=== PATIENT | female | born 1990 ===

== ENCOUNTER 2022-08-04 15:20 | Observation (INO) | payer BC ==
[2022-08-04] MEDS ORDERED: Sodium Chloride 0.9% 20 ML SDV IV PRN (16:26)
[2022-08-04] MEDS ORDERED: Citric Acid/Sodium Citrate Solution 30 ML Cup PO ONE (16:26)
[2022-08-04] MEDS: Lactated Ringers 1,000 ML IV SCH ×2 (16:58→19:33)
[2022-08-04] MEDS: Ondansetron 4 MG/2 ML SDV IVPUSH ONE (17:21)
[2022-08-04] MEDS ORDERED: Sodium Chloride 0.9% 2.5 ML Syringe FLUSH PRN (18:00)
[2022-08-04] MEDS ORDERED: Sodium Chloride 0.9% 10 ML Syringe FLUSH PRN (18:00)
[2022-08-04 18:17] LABS: CARBON DIOXIDE,CO2 17.7 mmol/L (21.0-32.0); POTASSIUM,K 3.8 mmol/L (3.5-5.1)
[2022-08-04] MEDS ORDERED: Lactated Ringers 1,000 ML IV ONE (18:30)
[2022-08-04] MEDS ORDERED: Terbutaline 1 MG/ML SDV SUBCUT ONE (21:06)
[2022-08-05] MEDS: Lactated Ringers 1,000 ML IV SCH (01:56)
[2022-08-05] MEDS ORDERED: Ondansetron 4 MG/2 ML SDV IVPUSH ONE (10:06)
[2022-08-05] MEDS: Ondansetron 4 MG/2 ML SDV IVPUSH ONE (10:23)
== END 2022-08-05 10:50 | disposition home or self-care (01) ==
LOC: MW.OBCHECK 15:20 → MW.OB 15:22 → MW.OBCHECK 19:29 → MW.OB 19:30
PROVIDERS: ADMIT Obstetrics & Gynecology; ATTEND Obstetrics & Gynecology
DX: O36.8130 Decreased fetal movements, third trimester, not applicable or unspecified (principal); O21.2 Late vomiting of pregnancy; O47.03 False labor before 37 completed weeks of gestation, third trimester; Z3A.34 34 weeks gestation of pregnancy; Z20.822 Contact with and (suspected) exposure to COVID-19
CPT/HCPCS: 36415; 59025; 80053; 81001; 81003; 85027; 87635; A9270; J2405; J3105; J7120; U0002

== ENCOUNTER 2022-08-28 00:14 | Inpatient (IN) | payer BC ==
[2022-08-28] MEDS: Sodium Chloride 0.9% 1,000 ML IV SCH ×3 (00:24→17:09)
[2022-08-28] MEDS ORDERED: Terbutaline 1 MG/ML SDV SUBCUT PRN (00:28)
[2022-08-28] MEDS ORDERED: Oxytocin/0.9 % Sodium Chloride 30 UNIT/500 ML BAG IV SCH ×2 (00:30→12:00)
[2022-08-28] MEDS ORDERED: Water For Irrigation,Sterile 1,000 ML Container IRR PRN (00:31)
[2022-08-28] MEDS ORDERED: Sodium Chloride 0.9% 20 ML SDV IV PRN (00:31)
[2022-08-28] MEDS ORDERED: Tranexamic Acid 1,000 MG in Sodium Chloride 0.9% 100 ML IV PRN (00:31)
[2022-08-28] MEDS ORDERED: Misoprostol 200 MCG Tab PO PRN (00:31)
[2022-08-28] MEDS ORDERED: Carboprost Tromethamine 250 MCG/1 ML Amp IM PRN (00:31)
[2022-08-28] MEDS ORDERED: Sodium Chloride 0.9% 10 ML Syringe FLUSH PRN (00:31)
[2022-08-28] MEDS ORDERED: Butorphanol 1 MG/ML SDV IVPUSH PRN (00:31)
[2022-08-28] MEDS ORDERED: Lidocaine 1% 50 ML MDV INJECT PRN (00:31)
[2022-08-28] MEDS ORDERED: Methylergonovine 0.2 MG/1 ML Amp IM PRN (00:31)
[2022-08-28] MEDS ORDERED: Sodium Chloride 0.9% 2.5 ML Syringe FLUSH PRN (00:31)
[2022-08-28] MEDS ORDERED: Misoprostol 25 MCG (1/4 of 100 MCG) Tab VAG PRN ×2 (01:00→05:00)
[2022-08-28] MEDS ORDERED: Ampicillin 2 GM in Sodium Chloride 0.9% 100 ML IV ONE (01:00)
[2022-08-28] MEDS ORDERED: Insulin Regular in 0.9 % NACL 100 ML IV SCH (03:15)
[2022-08-28] MEDS ORDERED: Dextrose 5%-0.9% NaCl 1,000 ML IV SCH (03:15)
[2022-08-28] MEDS ORDERED: Ampicillin 1 GM Vial ONE (04:58)
[2022-08-28] MEDS: Ampicillin 1 GM in Sodium Chloride 0.9% 50 ML IV SCH ×5 (05:10→21:46)
[2022-08-28] MEDS ORDERED: Ropivacaine/PF 400 MG/200 ML PCA ONE (12:00)
[2022-08-28] MEDS ORDERED: Ropivacaine HCl/PF 400 MG in Premix Bag 1 BAG EPIDUR SCH (12:15)
[2022-08-28] MEDS ORDERED: ePHEDrine 50 MG/ML SDV IVPUSH PRN (12:15)
[2022-08-28] MEDS ORDERED: Phenylephrine HCl In 0.9% NaCl 1 MG/10 ML Vial IVPUSH PRN (12:15)
[2022-08-28] MEDS ORDERED: Benzocaine/Menthol 20%-0.5% Spray 78 GM Cannister TOP PRN (23:12)
[2022-08-28] MEDS ORDERED: Witch Hazel Medicated Pads 40/Jar TOP PRN (23:12)
[2022-08-28] MEDS ORDERED: Bisacodyl 10 MG Supp RECTAL PRN (23:12)
[2022-08-28] MEDS ORDERED: Acetaminophen 500 MG Tab PO PRN ×2 (23:12)
[2022-08-28] MEDS ORDERED: Ibuprofen 400 MG Tab PO PRN (23:12)
[2022-08-28] MEDS ORDERED: Lanolin 100% Cream 7 GM Tube TOP PRN (23:12)
[2022-08-28] MEDS ORDERED: oxyCODONE 5 MG Tab PO PRN (23:12)
[2022-08-28] MEDS ORDERED: Docusate Sodium 100 MG Cap PO PRN (23:12)
[2022-08-28] MEDS: Ibuprofen 800 MG Tab PO PRN (23:25)
[2022-08-28] MEDS: Labetalol 100 MG Tab PO SCH (23:26)
[2022-08-29] MEDS: Ibuprofen 800 MG Tab PO PRN (05:32)
[2022-08-29] MEDS: Labetalol 100 MG Tab PO SCH (08:56)
[2022-08-29 09:03] LABS: CARBON DIOXIDE,CO2 21.3 mmol/L (21.0-32.0); POTASSIUM,K 3.4 mmol/L (3.5-5.1)
== END 2022-08-29 22:26 | disposition home or self-care (01) | DRG 560 ==
LOC: MW.OBCHECK 00:14 → MW.OB 00:18 → MW.OBCHECK 00:33 → OBSVTOIN 20:41 → MW.OB 08-29 00:20
PROVIDERS: ADMIT Obstetrics & Gynecology; ATTEND Obstetrics & Gynecology
PROC: 10E0XZZ Delivery of Products of Conception, External Approach (ICD-10-PCS; principal; 2022-08-28)
PROC: 10907ZC Drainage of Amniotic Fluid, Therapeutic from Products of Conception, Via Natural or Artificial Opening (ICD-10-PCS; 2022-08-28)
PROC: 3E0P7VZ Introduction of Hormone into Female Reproductive, Via Natural or Artificial Opening (ICD-10-PCS; 2022-08-28)
PROC: 0UQKXZZ Repair Hymen, External Approach (ICD-10-PCS; 2022-08-28)
DX: O14.04 Mild to moderate pre-eclampsia, complicating childbirth (principal); Z37.0 Single live birth; O99.214 Obesity complicating childbirth; O24.420 Gestational diabetes mellitus in childbirth, diet controlled; O99.824 Streptococcus B carrier state complicating childbirth; Z20.822 Contact with and (suspected) exposure to COVID-19; Z3A.37 37 weeks gestation of pregnancy
CPT/HCPCS: 01967; 36415; 51702; 59025; 59409; 80053; 82947; 85014; 85018; 85027; 86592; 86850; 86900; 86901; A9270-GY; J0290; J1815; J2590; J2795; J7030; J7042; J7050; U0002